=== PATIENT | female | born 1985 | race Caucasian/White ===

== ENCOUNTER 2025-01-02 09:27 | Emergency (ER) | payer MEDICAID ==
[~2025-01-02] VITALS: Ht 154.9 cm; Wt 66.7 kg
[2025-01-02 09:33] VITALS: BP 126/67; PULSE 82; RESP 18; TEMP 36.7; O2SAT 100
[2025-01-02] MEDS ORDERED: LIDO-53 TP (11:49)
[2025-01-02] MEDS: ACETAMINOPHEN 325MG TABLET PO ONE (12:19)
== END 2025-01-02 12:22 | disposition home or self-care (01) ==
LOC: ER 09:27
DX: M25.511 Pain in right shoulder (principal); Z98.890 Other specified postprocedural states; V49.9XXA Car occupant (driver) (passenger) injured in unspecified traffic accident, initial encounter; Y93.89 Activity, other specified; Y92.89 Other specified places as the place of occurrence of the external cause; Y99.8 Other external cause status
CPT/HCPCS: 73030; 73110; 81025; 99284